=== PATIENT | female | born 1970 | race Caucasian/White ===

== ENCOUNTER → 2023-12-31 09:14 | Outpatient (REF) | payer BC, SELFPAY | LOC: HWRAD 09:14 | PROVIDERS: ATTENDING PHYSICIAN Internal Medicine Hematology & Oncology; FAMILY PHYSICIAN Family Medicine | DX: C18.9 Malignant neoplasm of colon, unspecified (principal); I26.09 Other pulmonary embolism with acute cor pulmonale; D50.0 Iron deficiency anemia secondary to blood loss (chronic) | CPT/HCPCS: 71260; 74177; Q9967 ==

== ENCOUNTER → 2024-01-27 14:48 | Outpatient (REF) | payer BC, SELFPAY | LOC: HWRAD 14:48 | PROVIDERS: ATTENDING PHYSICIAN Internal Medicine Hematology & Oncology; FAMILY PHYSICIAN Family Medicine | DX: C18.9 Malignant neoplasm of colon, unspecified (principal); I26.09 Other pulmonary embolism with acute cor pulmonale; D50.0 Iron deficiency anemia secondary to blood loss (chronic); E04.1 Nontoxic single thyroid nodule | CPT/HCPCS: 76536 ==

== ENCOUNTER → 2024-05-06 09:15 | Outpatient (REF) | payer BC, SELFPAY | LOC: HWRAD 09:15 | PROVIDERS: ATTENDING PHYSICIAN Obstetrics & Gynecology Gynecologic Oncology; FAMILY PHYSICIAN Family Medicine | DX: C18.9 Malignant neoplasm of colon, unspecified (principal); D39.0 Neoplasm of uncertain behavior of uterus | CPT/HCPCS: 76856 ==

== ENCOUNTER → 2024-10-25 09:16 | Outpatient (REF) | payer BC, SELFPAY | LOC: WDC 09:16 | PROVIDERS: ATTENDING PHYSICIAN Family Medicine | DX: Z12.31 Encounter for screening mammogram for malignant neoplasm of breast (principal) | CPT/HCPCS: 77063; 77067 ==

== ENCOUNTER → 2025-05-03 12:17 | Outpatient (REF) | payer OTHER, SELFPAY | LOC: RAD 12:17 | PROVIDERS: ATTENDING PHYSICIAN Obstetrics & Gynecology Gynecologic Oncology; FAMILY PHYSICIAN Family Medicine | DX: C18.9 Malignant neoplasm of colon, unspecified (principal); D50.9 Iron deficiency anemia, unspecified; E04.1 Nontoxic single thyroid nodule; D39.0 Neoplasm of uncertain behavior of uterus; I26.09 Other pulmonary embolism with acute cor pulmonale; D50.0 Iron deficiency anemia secondary to blood loss (chronic); D27.0 Benign neoplasm of right ovary; Z12.31 Encounter for screening mammogram for malignant neoplasm of breast | CPT/HCPCS: 71260; 74177; Q9967 ==

== ENCOUNTER → 2025-10-28 13:09 | Outpatient (REF) | payer OTHER, SELFPAY | LOC: WDC 13:09 | PROVIDERS: ATTENDING PHYSICIAN Family Medicine | DX: Z12.31 Encounter for screening mammogram for malignant neoplasm of breast (principal) | CPT/HCPCS: 77063; 77067 ==